=== PATIENT | male | born 1985 | race Caucasian/White ===

== ENCOUNTER 2016-12-20 16:17 | Emergency (ER) | payer SELFPAY ==
[~2016-12-20] VITALS: Ht 185.4 cm; Wt 89.1 kg
[2016-12-20 16:35] VITALS: PULSE 100; TEMP 36.8; O2SAT 98; Ht 185.4 cm; Wt 89.1 kg
== END 2016-12-20 18:00 | disposition left against medical advice (07) ==
LOC: C.EDB 16:19 → C.EDD 18:00
DX: M25.562 Pain in left knee (principal)